=== PATIENT | female | born 1935 | race Caucasian/White ===

== ENCOUNTER 2017-01-02 10:23 | Outpatient (CLI) | payer MEDICARE ==
--- NOTE | 2017-01-02 15:42 | NM ---
WHOLE BODY BONE SCAN: HISTORY: Chest pain on breathing, right breast cancer. RADIOPHARMACEUTICAL: 33 mCi Technetium 99m-MDP injected intravenously. FINDINGS: There is mildly increased uptake in the region of the L1 and L2 vertebral bodies. There is a fractu re of L2 noted on the CT scan of 08/12/16. There is focally increased uptake in the right mandible consistent with periodontal disease. Increa sed uptake in the medial aspect of the left maxillary sinus is likely due to sinus disease. Increased uptake in the shoulder, knees, and ankles is consistent with degenerative changes. No oth er abnormal areas of tracer localization are seen. Tracer excretion through the kidneys within norm al limits. IMPRESSION: 1. Mild increased uptake in the upper lumbar spine. Correlation with plain radiographs is recommen ded. 2. No evidence of abnormal tracer localization in the rib cage. POS: [facility]
== END 2017-01-02 10:24 | disposition home or self-care (01) ==
LOC: NM 10:23
PROVIDERS: ATTEND Surgery
DX: R07.1 Chest pain on breathing (principal)
CPT/HCPCS: 78306; A9503

== ENCOUNTER 2017-01-07 14:23 | Outpatient (CLI) | payer MEDICARE ==
--- NOTE | 2017-01-07 16:53 | RAD ---
THREE VIEWS LUMBAR SPINE: Date: 01-07-17 History: Breast cancer. Comparison: 08-03-16 FINDINGS: Again noted are multilevel degenerative changes in the lumbar spine. There is a mild wedge shaped co mpression fracture of the L2 vertebral body which was seen on the CT lumbar spine on 08-12-16. The ma in vertebral body heights are within normal heights. There are degenerative changes seen involving t he upper lumbar spine with osteophytes present. No subluxation is seen. Vascular calcification is se en in the abdominal aorta and iliac arteries as well as in the tortuous splenic artery. IMPRESSION: 1. Overall stable height loss involving the compression fracture of the L2 vertebral body when ivana red to CT exam on 08-12-16. 2. Degenerative changes in the lumbar spine. 3. Vascular calcifications. POS: [facility]
== END 2017-01-07 14:24 | disposition home or self-care (01) ==
LOC: RAD 14:23
PROVIDERS: ATTEND Surgery
DX: C50.919 Malignant neoplasm of unspecified site of unspecified female breast (principal); M48.56XD Collapsed vertebra, not elsewhere classified, lumbar region, subsequent encounter for fracture with routine healing; M47.896 Other spondylosis, lumbar region; I70.90 Unspecified atherosclerosis
CPT/HCPCS: 72100

== ENCOUNTER 2017-04-14 10:22 | Inpatient (IN) | payer MEDICARE ==
[2017-04-14] MEDS ORDERED: Ondansetron HCl/PF 4 MG/2 ML Vial ONE (11:03)
[2017-04-14 11:05] LABS: #Eosinphils 0.1 thou/uL (0.0-0.7); #Lymphocytes 0.7 thou/uL (1.20-3.40); #Monocytes 0.7 thou/uL (0.11-0.59); #Neutrophils 4.6 thou/uL (1.40-6.50); %Basophils 0.2 % (0.0-1.0); %Eosinophils 1.3 % (0.0-10.0); %Lymphocytes 11.8 % (21.0-51.0); %Monocytes 11.9 % (0.0-10.0); %Neutrophils 74.8 % (42.0-75.0); Hemoglobin 12.8 g/dL (12.0-16.0); Mean Corpuscular HGB CONC 32.5 g/dL (32.0-36.0); Mean Corpuscular Hemoglobin 31.7 pg (27.0-31.0); Mean Corpuscular Volume 97.4 fl (81.0-99.0); Mean Platelet Volume 8.8 fL (7.4-10.4); Platelet Count 166 thou/uL (130-400); RBC Distribution Width 13.8 % (11.5-14.5); Red Blood Cell (RBC) Count 4.05 mill/uL (4.20-5.40); White Blood Cell (WBC) Count 6.2 thou/uL (4.8-10.8)
--- NOTE | 2017-04-14 11:15 | RAD ---
PORTABLE CHEST: Date: 04/14/17 HISTORY: Shortness of breath. Dyspnea. COMPARISON: 04/11/17. FINDINGS: Mild cardiomegaly is stable. The lungs appear clear. No evidence of significant vascular congestion. No focal infiltrate seen on this portable projection. IMPRESSION: No acute findings. POS: [facility]
[2017-04-14 11:28] LABS: ALT (SGPT) 26 U/L (8-55); AST (SGOT) 45 U/L (5-34); Albumin 4.2 g/dL (3.4-4.8); Alkaline Phosphatase 54 U/L (40-150); Anion Gap 17 mmol/L (10-20); BUN (Urea Nitrogen) 16 mg/dL (9.8-20.1); Bilirubin, Total 0.5 mg/dL (0.2-1.2); CK (CPK) 77 U/L (29-168); Calc. Creatinine Clearance 0 mL/min (70-130); Calcium 9.9 mg/dL (7.8-10.44); Carbon Dioxide 24 mmol/L (23-31); Chloride 99 mmol/L (98-107); Estimated GFR-MDRD 61; Globulin 2.9 g/dL (2.4-3.5); Glucose 100 mg/dL (83-110); Potassium 4.6 mmol/L (3.5-5.1); Protein, Total 7.1 g/dL (6.0-8.3); Sodium 135 mmol/L (136-145)
[2017-04-14] MEDS ORDERED: Albuterol Sulfate 2.5 mg/3 ml Neb ONE (12:02)
[2017-04-14] MEDS ORDERED: Acetaminophen 500 MG TAB ONE ×2 (13:45)
[2017-04-14] MEDS ORDERED: Senokot 8.6 MG TAB PO PRN (13:55)
[2017-04-14] MEDS ORDERED: Mag-Al 1200 mg/1200 mg/30 ML UDCUP PO PRN (13:55)
[2017-04-14] MEDS ORDERED: Sodium Chloride 0.9% 1,000 ML IV SCH (14:00)
[2017-04-14 14:23] VITALS: BMI 35.1
--- NOTE | 2017-04-14 14:29 | HP ---
REASON FOR ADMISSION: Chronic obstructive pulmonary disease exacerbation. HISTORY OF PRESENT ILLNESS: The patient gives history of being sick from last . She went to see her primary care physician last Friday, Dr. Del Valle. She got herself tested for flu, which was ne gative. Chest x-ray was done then and was negative for any pneumonia. She was given antibiotics for 5 days. From this morning, patient's cough with expectoration turned yellow and had a fever of 100. All of this prompted her to come to the emergency room to check it out. She is normally on 2 liter s nasal cannula oxygen at home. She sees Dr. Trujillo for Pulmonology in the outpatient setting. PAST MEDICAL/SURGICAL HISTORY: Hypertension, chronic atrial fibrillation, coronary artery disease, c hronic respiratory failure on home oxygen at 3 liters by nasal cannula, diastolic heart failure, hist ory of bladder cancer, history of Crohn's disease, dyslipidemia, diabetes mellitus type 2 which is di et controlled, breast cancer status post surgery and mastectomy, appendectomy, hysterectomy, right ma stectomy. CURRENT MEDICATIONS: Pravastatin 10 mg p.o. at bedtime, Diovan 320 mg p.o. q.a.m., Coreg 6.25 mg p.o . twice daily, aspirin 81 mg p.o. daily, multivitamin 1 tablet daily, Dulera inhaler, citalopram 10 m g p.o. daily, Eliquis 5 mg p.o. twice daily, Bentyl p.r.n., lisinopril 20 mg p.o. twice daily. ALLERGIES: Allergic to PROMETHAZINE. PERSONAL HISTORY: Does not abuse alcohol or drugs. Quit smoking 35 years ago. She normally ambulat es by herself and rarely uses a walker. FAMILY HISTORY: Both parents at the age of 84 years. Father instantly with a motor vehicl e accident and mom lived 3 years beyond that and due to complications from the same. REVIEW OF SYSTEMS: The following complete review of systems was negative, unless otherwise mentioned in the HPI or below: Constitutional: Weight loss or gain, ability to conduct usual activities. Skin: Rash, itching. Eyes: Double vision, pain. ENT/Mouth: Nose bleeding, neck stiffness, pain, tenderness. Cardiovascular: Palpitations, dyspnea on exertion, orthopnea. Respiratory: Shortness of breath, wheezing, cough, hemoptysis, fever or night sweats. Gastrointestinal: Poor appetite, abdominal pain, heartburn, nausea, vomiting, constipation, or diarr hea. Genitourinary: Urgency, frequency, dysuria, nocturia. Musculoskeletal: Pain, swelling. Neurologic/Psychiatric: Anxiety, depression. Allergy/Immunologic: Skin rash, bleeding tendency. PHYSICAL EXAMINATION: GENERAL: The patient is an 82-year-old female who is currently not in any acute distress. VITAL SIGNS: Blood pressure 146/66, pulse 70 per minute, respiratory rate 18 per minute, temperature 99.3 degrees Fahrenheit, saturating 96% on 3 liters nasal cannula. NECK: Supple, no elevated JVD. HEENT: Eyes: Extraocular muscles intact. Pupils reacting to light. Oral cavity mucous membranes a re dry. No exudates or congestion. CARDIOVASCULAR: S1, S2 heard. Regular rhythm. RESPIRATORY: Air entry 1+ bilateral. Scattered wheezes plus bilateral. ABDOMEN: Soft, bowel sounds heard. No tenderness, rigidity or guarding. EXTREMITIES: No peripheral edema or calf tenderness. VASCULAR SYSTEM: Peripheral pulses 1+ bilateral. No ischemic ulcerations or gangrene. CENTRAL NERVOUS SYSTEM: No gross focal deficits seen. Patient is alert, awake, oriented well. PSYCHIATRIC: The patient's mood is euthymic. No hallucinations or delusions. LABORATORY DATA AND X-RAY FINDINGS: EKG done shows atrial fibrillation at 71 beats per minute. Elec trolytes are stable. BUN 16, creatinine 0.8, glucose 100, AST 45, albumin is 4.2. First set of card iac enzymes are negative. Chest x-ray done shows no acute cardiopulmonary abnormalities. White coun t of 6, H&H is 12 and 39, platelet count 166 with 74% neutrophils. CLINICAL IMPRESSION AND PLAN: The patient will be admitted to medical floor for acute chronic obstru ction pulmonary exacerbation with history of chronic respiratory failure on home oxygen. The patient likely had a viral infection a week back, which has caused her current chronic obstructive pulmonary disease exacerbation. She will be on Solu-Medrol 40 mg IV q.6 hourly, gentle hydration with normal saline at 40 mL per hour and empiric Levaquin 500 mg IV daily. We will continue her aspirin, Coreg, Lexapro, Eliquis, and Pravachol as before. We will also consult her revenue enforcement agent, Dr. Trujillo, who kno ws her well from before. Code status was discussed and she is a full code for now.
[2017-04-14] MEDS: Acetaminophen 325 MG TAB PO PRN (20:22)
[2017-04-14] MEDS: Famotidine 20 MG TAB PO SCH (21:35)
[2017-04-14] MEDS: Carvedilol 6.25 MG TAB PO SCH (21:35)
[2017-04-14] MEDS: Apixaban 5 MG TAB PO SCH (21:36)
[2017-04-14] MEDS: Pravastatin Sodium 20 MG TAB PO SCH (21:36)
[2017-04-15] MEDS ORDERED: Albuterol Sulfate 2.5 mg/3 ml Neb NEB PRN (05:27)
[2017-04-15] MEDS ORDERED: Sodium Chloride 0.9% 10 ML ONE ×2 (05:32→11:16)
[2017-04-15 06:14] LABS: Anion Gap 18 mmol/L (10-20); BUN (Urea Nitrogen) 20 mg/dL (9.8-20.1); Calc. Creatinine Clearance 57 mL/min (70-130); Calcium 9.4 mg/dL (7.8-10.44); Carbon Dioxide 21 mmol/L (23-31); Chloride 100 mmol/L (98-107); Estimated GFR-MDRD 50; Glucose 166 mg/dL (83-110); Potassium 6.1 mmol/L (3.5-5.1); Sodium 133 mmol/L (136-145)
[2017-04-15 06:24] LABS: Band 15 % (5-11); Hemoglobin 11.7 g/dL (12.0-16.0); Lymphocytes 8 % (21-51); MDiff Complete? YES; Mean Corpuscular HGB CONC 30.3 g/dL (32.0-36.0); Mean Corpuscular Hemoglobin 29.6 pg (27.0-31.0); Mean Corpuscular Volume 97.6 fl (81.0-99.0); Mean Platelet Volume 8.4 fL (7.4-10.4); Monocytes 3 % (0-10); Neutrophil 74 % (42-75); Platelet Count 138 thou/uL (130-400); RBC Distribution Width 13.4 % (11.5-14.5); Red Blood Cell (RBC) Count 3.95 mill/uL (4.20-5.40); White Blood Cell (WBC) Count 8.6 thou/uL (4.8-10.8)
[2017-04-15] MEDS: Escitalopram Oxalate 10 mg Tablet PO SCH (08:37)
[2017-04-15] MEDS: Carvedilol 6.25 MG TAB PO SCH ×2 (08:37→22:29)
[2017-04-15] MEDS: Apixaban 5 MG TAB PO SCH ×2 (08:38→22:29)
[2017-04-15] MEDS: Famotidine 20 MG TAB PO SCH ×2 (08:38→22:29)
[2017-04-15] MEDS: Fish Oil 1,000 MG CAP PO SCH (08:39)
[2017-04-15] MEDS: Acetaminophen 325 MG TAB PO PRN (08:39)
[2017-04-15 09:41] LABS: Anion Gap 19 mmol/L (10-20); BUN (Urea Nitrogen) 22 mg/dL (9.8-20.1); Calc. Creatinine Clearance 57 mL/min (70-130); Calcium 9.4 mg/dL (7.8-10.44); Carbon Dioxide 20 mmol/L (23-31); Chloride 102 mmol/L (98-107); Estimated GFR-MDRD 50; Glucose 197 mg/dL (83-110); Potassium 6.9 mmol/L (3.5-5.1); Sodium 134 mmol/L (136-145)
[2017-04-15 10:48] LABS: Potassium 4.7 mmol/L (3.5-5.1)
--- NOTE | 2017-04-15 11:18 | CON ---
DATE OF CONSULTATION: 04/15/2017 This is an 82-year-old morbidly obese female who is well-known to me. She presented here with shortn ess of breath, weakness, cough and fever. Apparently sats were low in the 70s. She was placed on lo w flow O2. On most days she can barely walk 50 feet without getting markedly short of breath. She saw her [facility]. X-ray was ordered which apparently was clear. She now states her sputum has changed from clear to now discolored sputum. PAST MEDICAL HISTORY: Pertinent for chronic obstructive pulmonary disease, severe deconditioning, ob esity, respiratory failure, congestive heart failure, cardiac arrhythmias, hypertension, Crohn's dise ase, breast cancer. PAST SURGICAL HISTORY: Mastectomy, right. Appendix. Hysterectomy. Bladder cancer. TOBACCO: emt intermediate previous smoker. MEDICATIONS FROM HOME: 1. Metformin 500. 2. Azulfidine 500 twice a day. 3. Hydralazine 50. 4. Pravastatin. 5. Dulera. 6. Lisinopril 20. 7. Synthroid 50. 8. DuoNeb. Breo 1. 9. Lexapro 10. 10. Digoxin 0.25. 11. Bentyl 10. 12. Coreg 6.25. 13. Eliquis 5 twice a day. Also on admission she was started on steroids, antibiotics, DuoNeb. REVIEW OF SYSTEMS: Otherwise 10 point negative. PHYSICAL EXAMINATION: GENERAL: She appears to be in mild distress. VITAL SIGNS: Blood pressure 150/70, sats 84-87, 90 on 4 liters, temperature is 98. CHEST: Noted extensive wheezing and rhonchi. CARDIAC: Normal S1, S2. No gallops. Supraventricular tachycardia. ABDOMEN: Soft. NEURO: She is awake, alert, responsive. LABORATORY: White count 8000, H&H 9 and 38, platelet count is 38. Electrolytes are normal. Glucose 146. Chest x-ray report shows once again cardiomegaly, but no acute infiltrates. IMPRESSION: 1. Chronic obstructive pulmonary disease exacerbation. 2. Bronchitis. 3. Supraventricular tachycardia. 3. Severe deconditioning. PLAN: Continue neb treatments, empiric antibiotics, supportive care. I will follow.
--- NOTE | 2017-04-15 13:36 | PDOC.PN ---
- Subjective Encounter Start Date: 04/15/17 Encounter Start Time: 11:00 Subjective: sob+, no chest pain or palpitations - Objective Resuscitation Status: Resuscitation Status DNR:Do Not Resuscitate MAR Reviewed: Yes Vital Signs & Weight: Vital Signs (12 hours) Temp Pulse Resp BP BP Pulse Ox 04/15/17 11:57 98.5 F 82 28 H 86 L 04/15/17 08:37 150/70 H 04/15/17 08:04 87 L 04/15/17 08:00 98.5 F 82 28 H 150/67 H 88 L 04/15/17 07:58 68 20 87 L 04/15/17 06:01 72 22 H 89 L 04/15/17 05:27 95 04/15/17 04:40 98.4 F 84 26 H 156/65 H 94 L Weight Admit Weight 198 lb 6.656 oz Weight 198 lb 6.656 oz I&O: 04/14/17 04/15/17 04/16/17 06:59 06:59 06:59 Intake Total 2319 Output Total 800 Balance 1519 Result Diagrams: 04/15/17 05:19 04/15/17 10:24 Additional Labs: Accuchecks 04/15/17 04/14/17 04/14/17 04:43 22:25 18:06 POC Glucose 146 H 109 90 04/14/17 16:00 POC Glucose 56 L* Phys Exam - Physical Examination HEENT: PERRLA, moist MMs Neck: no JVD, supple Respiratory: no wheezing, no rales rhonchi++ Cardiovascular: RRR, no significant murmur Gastrointestinal: soft, non-tender, positive bowel sounds Musculoskeletal: no edema, pulses present Neurological: non-focal, moves all 4 limbs Psychiatric: A&O x 3 Dx/Plan (1) COPD exacerbation Code(s): J44.1 - CHRONIC OBSTRUCTIVE PULMONARY DISEASE W (ACUTE) EXACERBATION Status: Acute (2) Respiratory failure with hypoxia Code(s): J96.91 - RESPIRATORY FAILURE, UNSPECIFIED WITH HYPOXIA Status: Chronic Qualifiers: Chronicity: acute on chronic Qualified Code(s): J96.21 - Acute and chronic respiratory failure with hypoxia (3) Atrial fibrillation Code(s): I48.91 - UNSPECIFIED ATRIAL FIBRILLATION Status: Chronic Qualifiers: Atrial fibrillation type: chronic Qualified Code(s): I48.2 - Chronic atrial fibrillation (4) CAD (coronary artery disease) Code(s): I25.10 - ATHSCL HEART DISEASE OF [place] CORONARY ARTERY W/O ANG PCTRS Status: Chronic Qualifiers: Coronary Disease-Associated Artery/Lesion type: [place] artery [place] vs. transplanted heart: [place] heart Associated angina: without angina Qualified Code(s): I25.10 - Atherosclerotic heart disease of [place] coronary artery without angina pectoris (5) DM type 2 (diabetes mellitus, type 2) Status: Chronic Qualifiers: Diabetes mellitus complication status: with unspecified complications Diabetes mellitus fci insulin use: without termite helper use Qualified Code( s): E11.8 - Type 2 diabetes mellitus with unspecified complications (6) Diastolic heart failure Code(s): I50.30 - UNSPECIFIED DIASTOLIC (CONGESTIVE) HEART FAILURE Status: Chronic Qualifiers: Heart failure chronicity: chronic (7) HTN (hypertension) Code(s): I10 - ESSENTIAL (PRIMARY) HYPERTENSION Status: Chronic Qualifiers: Hypertension type: essential hypertension - Plan on nebs, steroids, empiric levaquin -: asp, coreg and eliquis -: PT to mobilize as tolerated, oob to chair -: i.spirometer, discussed code status: wants to be DNR -: is chronically on 2 liters NC at home * . Review of Systems - Medications/Allergies Allergies/Adverse Reactions: Allergies Allergy/AdvReac Type Severity Reaction Status Date / Time promethazine HCl Allergy Unknown Anxiety Verified 08/27/16 21:26 [From Phenergan] Medications: Current Medications Acetaminophen (Tylenol) 650 mg PO Q4H PRN PRN Reason: Headache/Fever or Pain Last Admin: 04/15/17 08:39 Dose: 650 mg Al Hydroxide/Mg Hydroxide (Maalox) 30 ml PO Q6H PRN PRN Reason: Heartburn or Indigestion Albuterol Sulfate (Ventolin) 2.5 mg NEB Q2H PRN PRN Reason: Dyspnea/Wheezing/SOB Last Admin: 04/15/17 07:58 Dose: 2.5 mg Albuterol/Ipratropium (Duoneb) 3 ml NEB [id number] [facility] Last Admin: 04/15/17 06:01 Dose: 3 ml Apixaban (Eliquis) 5 mg PO BID [facility] Last Admin: 04/15/17 08:38 Dose: 5 mg Aspirin (Aspirin Chewable) 81 mg PO DAILY [facility] Last Admin: 04/15/17 08:36 Dose: 81 mg Carvedilol (Coreg) 6.25 mg PO BID [facility] Last Admin: 04/15/17 08:37 Dose: 6.25 mg Escitalopram Oxalate (Lexapro) 10 mg PO DAILY [facility] Last Admin: 04/15/17 08:37 Dose: 10 mg Famotidine (Pepcid) 20 mg PO BID [facility] Last Admin: 04/15/17 08:38 Dose: 20 mg Fish Oil (Fish Oil) 1,000 mg PO DAILY [facility] Last Admin: 04/15/17 08:39 Dose: 1,000 mg Guaifenesin/Dextromethorphan (Robitussin Dm) 15 ml PO Q4H PRN PRN Reason: Cough Levofloxacin 500 mg/ Device 100 mls @ 100 mls/hr IVPB 1100 [facility] Last Admin: 04/15/17 11:30 Dose: 100 mls Methylprednisolone Sodium Succinate (Solu-Medrol) 40 mg IVP Q6HR [facility] Last Admin: 04/15/17 11:30 Dose: 40 mg Mometasone Furoate/Formoterol Fumar (Dulera 200 Mcg/5 Mcg Inhaler) 2 puff INH BID-RT [facility] Pravastatin Sodium (Pravachol) 10 mg PO HS [facility] Last Admin: 04/14/17 21:36 Dose: 10 mg Senna (Senokot) 2 tab PO HSPRN PRN PRN Reason: Constipation
[2017-04-15] MEDS ORDERED: Ondansetron HCl/PF 4 MG/2 ML Vial SLOW IVP PRN (17:02)
[2017-04-15] MEDS ORDERED: Dextrose 5% in Water 1,000 ML IV PRN (17:03)
[2017-04-15] MEDS ORDERED: Dextrose 50% Abboject 50 ML SYRINGE IVP PRN (17:03)
[2017-04-15] MEDS: HumaLOG 300 UNITS/3 ML VIAL SC PRN (17:21)
[2017-04-15] MEDS: Mometasone/Formoterol 120 PUFF INHALER INH SCH (19:05)
[2017-04-15] MEDS: Pravastatin Sodium 20 MG TAB PO SCH (22:28)
[2017-04-16] MEDS: Mometasone/Formoterol 120 PUFF INHALER INH SCH ×2 (06:46→18:16)
[2017-04-16] MEDS: Apixaban 5 MG TAB PO SCH ×2 (08:18→21:03)
[2017-04-16] MEDS: Escitalopram Oxalate 10 mg Tablet PO SCH (08:18)
[2017-04-16] MEDS: Famotidine 20 MG TAB PO SCH ×2 (08:18→21:03)
[2017-04-16] MEDS: Fish Oil 1,000 MG CAP PO SCH (08:19)
[2017-04-16] MEDS: Carvedilol 6.25 MG TAB PO SCH ×2 (08:19→21:03)
[2017-04-16] MEDS: metFORMIN 500 MG TAB PO SCH ×2 (08:33→14:47)
--- NOTE | 2017-04-16 11:38 | PDOC.PN ---
- Subjective Encounter Start Date: 04/16/17 Encounter Start Time: 10:00 Subjective: no sob, feels better - Objective Resuscitation Status: Resuscitation Status DNR:Do Not Resuscitate MAR Reviewed: Yes Vital Signs & Weight: Vital Signs (12 hours) Temp Pulse Resp BP Pulse Ox 04/16/17 07:52 97.8 F 69 16 173/84 H 93 L 04/16/17 07:10 98 F 64 16 04/16/17 06:48 64 16 94 L 04/16/17 06:46 64 16 94 L 04/16/17 04:40 98.0 F 67 18 154/83 H 95 04/16/17 00:00 98.8 F 62 20 156/78 H 91 L Weight Admit Weight 198 lb 6.656 oz Weight 198 lb 6.656 oz I&O: 04/15/17 04/16/17 04/17/17 06:59 06:59 06:59 Intake Total 2319 Output Total 800 Balance 1519 Result Diagrams: 04/15/17 05:19 04/15/17 10:24 Additional Labs: Accuchecks 04/16/17 04/15/17 04/15/17 04:31 20:24 19:06 POC Glucose 258 H 262 H 273 H 04/15/17 16:48 POC Glucose 337 H Phys Exam - Physical Examination HEENT: PERRLA, moist MMs Neck: no JVD, supple Respiratory: no wheezing, no rales rhonchi+ Cardiovascular: RRR, no significant murmur Gastrointestinal: soft, non-tender, positive bowel sounds Musculoskeletal: no edema, pulses present Neurological: non-focal, moves all 4 limbs Psychiatric: A&O x 3 Dx/Plan (1) COPD exacerbation Code(s): J44.1 - CHRONIC OBSTRUCTIVE PULMONARY DISEASE W (ACUTE) EXACERBATION Status: Acute (2) Respiratory failure with hypoxia Code(s): J96.91 - RESPIRATORY FAILURE, UNSPECIFIED WITH HYPOXIA Status: Chronic Qualifiers: Chronicity: chronic Qualified Code(s): J96.11 - Chronic respiratory failure with hypoxia (3) Atrial fibrillation Code(s): I48.91 - UNSPECIFIED ATRIAL FIBRILLATION Status: Chronic Qualifiers: Atrial fibrillation type: chronic Qualified Code(s): I48.2 - Chronic atrial fibrillation (4) CAD (coronary artery disease) Code(s): I25.10 - ATHSCL HEART DISEASE OF [place] CORONARY ARTERY W/O ANG PCTRS Status: Chronic Qualifiers: Coronary Disease-Associated Artery/Lesion type: [place] artery [place] vs. transplanted heart: [place] heart Associated angina: without angina Qualified Code(s): I25.10 - Atherosclerotic heart disease of [place] coronary artery without angina pectoris (5) DM type 2 (diabetes mellitus, type 2) Status: Chronic Qualifiers: Diabetes mellitus complication status: with unspecified complications Diabetes mellitus extermination inspector insulin use: without extermination inspector use Qualified Code( s): E11.8 - Type 2 diabetes mellitus with unspecified complications (6) Diastolic heart failure Code(s): I50.30 - UNSPECIFIED DIASTOLIC (CONGESTIVE) HEART FAILURE Status: Chronic Qualifiers: Heart failure chronicity: chronic (7) HTN (hypertension) Code(s): I10 - ESSENTIAL (PRIMARY) HYPERTENSION Status: Chronic Qualifiers: Hypertension type: essential hypertension - Plan is on solumedrol q8h -: empiric levaquin and nebs -: to ambulate more as tolerated -: add home dose of metformin -: dm is uncontrolled due to steroids which is getting tapered * . Review of Systems - Medications/Allergies Allergies/Adverse Reactions: Allergies Allergy/AdvReac Type Severity Reaction Status Date / Time promethazine HCl Allergy Unknown Anxiety Verified 08/27/16 21:26 [From Phenergan] Medications: Current Medications Acetaminophen (Tylenol) 650 mg PO Q4H PRN PRN Reason: Headache/Fever or Pain Last Admin: 04/15/17 08:39 Dose: 650 mg Al Hydroxide/Mg Hydroxide (Maalox) 30 ml PO Q6H PRN PRN Reason: Heartburn or Indigestion Albuterol Sulfate (Ventolin) 2.5 mg NEB Q2H PRN PRN Reason: Dyspnea/Wheezing/SOB Last Admin: 04/15/17 07:58 Dose: 2.5 mg Albuterol/Ipratropium (Duoneb) 3 ml NEB [id number] [facility] Last Admin: 04/16/17 06:48 Dose: 3 ml Apixaban (Eliquis) 5 mg PO BID [facility] Last Admin: 04/16/17 08:18 Dose: 5 mg Aspirin (Aspirin Chewable) 81 mg PO DAILY [facility] Last Admin: 04/16/17 08:18 Dose: 81 mg Carvedilol (Coreg) 6.25 mg PO BID [facility] Last Admin: 04/16/17 08:19 Dose: 6.25 mg Dextrose/Water (Dextrose 50%) 25 gm IVP PRN PRN PRN Reason: HYPOGLYCEMIA PROTOCOL Escitalopram Oxalate (Lexapro) 10 mg PO DAILY [facility] Last Admin: 04/16/17 08:18 Dose: 10 mg Famotidine (Pepcid) 20 mg PO BID [facility] Last Admin: 04/16/17 08:18 Dose: 20 mg Fish Oil (Fish Oil) 1,000 mg PO DAILY [facility] Last Admin: 04/16/17 08:19 Dose: 1,000 mg Glucagon (Glucagon) 1 mg IM PRN PRN PRN Reason: HYPOGLYCEMIA PROTOCOL Guaifenesin/Dextromethorphan (Robitussin Dm) 15 ml PO Q4H PRN PRN Reason: Cough Levofloxacin 500 mg/ Device 100 mls @ 100 mls/hr IVPB 1100 [facility] Last Admin: 04/16/17 08:19 Dose: 100 mls Dextrose/Water (D5w) 1,000 mls @ 0 mls/hr IV INF PRN; As Directed PRN Reason: HYPOGLYCEMIA PROTOCOL Insulin Human Lispro (Humalog) 0 units SC .MODERATE SLIDING SC PRN; Protocol PRN Reason: MODERATE SLIDING SCALE Last Admin: 04/15/17 17:21 Dose: 5 unit Metformin HCl (Glucophage) 500 mg PO BID-[facility] Last Admin: 04/16/17 08:33 Dose: 500 mg Methylprednisolone Sodium Succinate (Solu-Medrol) 20 mg IVP Q8HR [facility] Mometasone Furoate/Formoterol Fumar (Dulera 200 Mcg/5 Mcg Inhaler) 2 puff INH BID-RT [facility] Last Admin: 04/16/17 06:46 Dose: 2 puff Ondansetron HCl (Zofran) 4 mg SLOW IVP Q6H PRN PRN Reason: Nausea/Vomiting Last Admin: 04/15/17 17:19 Dose: 4 mg Pravastatin Sodium (Pravachol) 10 mg PO HS [facility] Last Admin: 04/15/17 22:28 Dose: 10 mg Senna (Senokot) 2 tab PO HSPRN PRN PRN Reason: Constipation
[2017-04-16] MEDS: HumaLOG 300 UNITS/3 ML VIAL SC PRN ×3 (12:37→21:04)
[2017-04-16] MEDS: Acetaminophen 325 MG TAB PO PRN ×2 (12:40→18:05)
--- NOTE | 2017-04-16 13:40 | PRG ---
DATE OF SERVICE: 04/16/2017 SUBJECTIVE: She is feeling better this morning. She is still weak. She is coughing up some stuff t hat is grossly purulent. No chest pain, chills or sweats. She is scheduled neb treatments, steroids as well as Dulera. She has noninvasive ventilation at night time: OBJECTIVE: VITAL SIGNS: Sats are 93 on 4 liters, temperature 97, blood pressure 173/84. CHEST: Extensive rhonchi. CARDIAC: Sinus tachycardia. ABDOMEN: Soft. No masses. LABORATORY: Blood cultures are growing coagulase negative Staph, which is a contamination. IMPRESSION: 1. Chronic obstructive pulmonary disease exacerbation, bronchitis. 2. Severe deconditioning. 3. Morbid obesity. 4. Sleep apnea. Noninvasive ventilation at nighttime initiated. Continue neb treatments, supportive care, antibiotic s. We will follow.
[2017-04-16] MEDS: Guaifenesin DM 100-10/5 ML UDCUP PO PRN (18:01)
[2017-04-16] MEDS: Pravastatin Sodium 20 MG TAB PO SCH (21:03)
[2017-04-17] MEDS: HumaLOG 300 UNITS/3 ML VIAL SC PRN ×3 (05:19→17:55)
[2017-04-17] MEDS: Acetaminophen 325 MG TAB PO PRN (05:35)
[2017-04-17] MEDS: Mometasone/Formoterol 120 PUFF INHALER INH SCH ×2 (06:57→19:30)
[2017-04-17] MEDS: metFORMIN 500 MG TAB PO SCH ×2 (09:23→17:55)
[2017-04-17] MEDS: Fish Oil 1,000 MG CAP PO SCH (09:23)
[2017-04-17] MEDS: Carvedilol 6.25 MG TAB PO SCH ×2 (09:23→20:41)
[2017-04-17] MEDS: Apixaban 5 MG TAB PO SCH ×2 (09:23→20:41)
[2017-04-17] MEDS: Escitalopram Oxalate 10 mg Tablet PO SCH (09:23)
[2017-04-17] MEDS: Famotidine 20 MG TAB PO SCH ×2 (09:24→20:42)
--- NOTE | 2017-04-17 09:46 | PRG ---
DATE OF SERVICE: 04/17/2017 This morning she is doing poorly. She is short of breath. PHYSICAL EXAMINATION: VITAL SIGNS: Sats are 93 on 4 liters, blood pressure 150/80, temperature is 97. CHEST: Chest revealed decreased breath sounds, no wheezing. CARDIAC: Normal S1, S2. ABDOMEN: Soft, no masses. IMPRESSION: 1. Severe chronic obstructive pulmonary disease. 2. Hypoxemia. 3. Severe deconditioning. 4. Congestive heart failure. PLAN: Continue neb treatments, steroids, supportive care. I will follow. Nocturnal ventilation.
--- NOTE | 2017-04-17 11:46 | PDOC.PN ---
- Subjective Encounter Start Date: 04/17/17 Encounter Start Time: 10:00 Subjective: sob+, has not amb so far -: no palp or chest pain -: overall is getting better - Objective Resuscitation Status: Resuscitation Status DNR:Do Not Resuscitate MAR Reviewed: Yes Vital Signs & Weight: Vital Signs (12 hours) Temp Pulse Resp BP BP Pulse Ox 04/17/17 09:23 151/81 H 04/17/17 08:00 97.6 F 67 20 151/81 H 04/17/17 07:00 64 16 93 L 04/17/17 06:57 64 16 93 L Weight Admit Weight 198 lb 6.656 oz Weight 198 lb 6.656 oz I&O: 04/16/17 04/17/17 04/18/17 06:59 06:59 06:59 Intake Total 480 Balance 480 Result Diagrams: 04/15/17 05:19 04/15/17 10:24 Additional Labs: Accuchecks 04/17/17 04/16/17 04/16/17 04:46 20:14 16:27 POC Glucose 203 H 235 H 202 H 04/16/17 11:47 POC Glucose 282 H Phys Exam - Physical Examination HEENT: PERRLA, moist MMs Neck: no JVD, supple Respiratory: no rales, wheezing present Cardiovascular: RRR, no significant murmur Gastrointestinal: soft, non-tender, positive bowel sounds Musculoskeletal: no edema, pulses present Neurological: non-focal, moves all 4 limbs Psychiatric: A&O x 3 Dx/Plan (1) COPD exacerbation Code(s): J44.1 - CHRONIC OBSTRUCTIVE PULMONARY DISEASE W (ACUTE) EXACERBATION Status: Acute (2) Respiratory failure with hypoxia Code(s): J96.91 - RESPIRATORY FAILURE, UNSPECIFIED WITH HYPOXIA Status: Chronic Qualifiers: Chronicity: chronic Qualified Code(s): J96.11 - Chronic respiratory failure with hypoxia (3) Atrial fibrillation Code(s): I48.91 - UNSPECIFIED ATRIAL FIBRILLATION Status: Chronic Qualifiers: Atrial fibrillation type: chronic Qualified Code(s): I48.2 - Chronic atrial fibrillation (4) CAD (coronary artery disease) Code(s): I25.10 - ATHSCL HEART DISEASE OF [place] CORONARY ARTERY W/O ANG PCTRS Status: Chronic Qualifiers: Coronary Disease-Associated Artery/Lesion type: [place] artery [place] vs. transplanted heart: [place] heart Associated angina: without angina Qualified Code(s): I25.10 - Atherosclerotic heart disease of [place] coronary artery without angina pectoris (5) DM type 2 (diabetes mellitus, type 2) Status: Chronic Qualifiers: Diabetes mellitus complication status: with unspecified complications Diabetes mellitus long-term insulin use: without long-term use Qualified Code( s): E11.8 - Type 2 diabetes mellitus with unspecified complications (6) Diastolic heart failure Code(s): I50.30 - UNSPECIFIED DIASTOLIC (CONGESTIVE) HEART FAILURE Status: Chronic Qualifiers: Heart failure chronicity: chronic (7) HTN (hypertension) Code(s): I10 - ESSENTIAL (PRIMARY) HYPERTENSION Status: Chronic Qualifiers: Hypertension type: essential hypertension (8) Physical deconditioning Code(s): R53.81 - OTHER MALAISE Status: Acute - Plan is on levaquin, nebs and steroids -: spo2 93% on 4 liters -: PT to mobilize as tolerated -: might need swing bed if she cant amb -: oob to chair as much as possible, donot elevate her legs * . Review of Systems - Medications/Allergies Allergies/Adverse Reactions: Allergies Allergy/AdvReac Type Severity Reaction Status Date / Time promethazine HCl Allergy Unknown Anxiety Verified 08/27/16 21:26 [From Phenergan] Medications: Current Medications Acetaminophen (Tylenol) 650 mg PO Q4H PRN PRN Reason: Headache/Fever or Pain Last Admin: 04/17/17 05:35 Dose: 650 mg Al Hydroxide/Mg Hydroxide (Maalox) 30 ml PO Q6H PRN PRN Reason: Heartburn or Indigestion Albuterol Sulfate (Ventolin) 2.5 mg NEB Q2H PRN PRN Reason: Dyspnea/Wheezing/SOB Last Admin: 04/15/17 07:58 Dose: 2.5 mg Albuterol/Ipratropium (Duoneb) 3 ml NEB [id number] [facility] Last Admin: 04/17/17 07:00 Dose: 3 ml Apixaban (Eliquis) 5 mg PO BID [facility] Last Admin: 04/17/17 09:23 Dose: 5 mg Aspirin (Aspirin Chewable) 81 mg PO DAILY [facility] Last Admin: 04/17/17 09:24 Dose: 81 mg Carvedilol (Coreg) 6.25 mg PO BID [facility] Last Admin: 04/17/17 09:23 Dose: 6.25 mg Dextrose/Water (Dextrose 50%) 25 gm IVP PRN PRN PRN Reason: HYPOGLYCEMIA PROTOCOL Escitalopram Oxalate (Lexapro) 10 mg PO DAILY [facility] Last Admin: 04/17/17 09:23 Dose: 10 mg Famotidine (Pepcid) 20 mg PO BID [facility] Last Admin: 04/17/17 09:24 Dose: 20 mg Fish Oil (Fish Oil) 1,000 mg PO DAILY [facility] Last Admin: 04/17/17 09:23 Dose: 1,000 mg Glucagon (Glucagon) 1 mg IM PRN PRN PRN Reason: HYPOGLYCEMIA PROTOCOL Guaifenesin/Dextromethorphan (Robitussin Dm) 15 ml PO Q4H PRN PRN Reason: Cough Last Admin: 04/16/17 18:01 Dose: 15 ml Levofloxacin 500 mg/ Device 100 mls @ 100 mls/hr IVPB 1100 [facility] Last Admin: 04/16/17 08:19 Dose: 100 mls Dextrose/Water (D5w) 1,000 mls @ 0 mls/hr IV INF PRN; As Directed PRN Reason: HYPOGLYCEMIA PROTOCOL Insulin Human Lispro (Humalog) 0 units SC .MODERATE SLIDING SC PRN; Protocol PRN Reason: MODERATE SLIDING SCALE Last Admin: 04/17/17 05:19 Dose: 4 unit Metformin HCl (Glucophage) 500 mg PO BID-WM [facility] Last Admin: 04/17/17 09:23 Dose: 500 mg Methylprednisolone Sodium Succinate (Solu-Medrol) 20 mg IVP Q8HR [facility] Last Admin: 04/17/17 05:19 Dose: 20 mg Mometasone Furoate/Formoterol Fumar (Dulera 200 Mcg/5 Mcg Inhaler) 2 puff INH BID-RT [facility] Last Admin: 04/17/17 06:57 Dose: 2 puff Ondansetron HCl (Zofran) 4 mg SLOW IVP Q6H PRN PRN Reason: Nausea/Vomiting Last Admin: 04/15/17 17:19 Dose: 4 mg Pravastatin Sodium (Pravachol) 10 mg PO HS [facility] Last Admin: 04/16/17 21:03 Dose: 10 mg Senna (Senokot) 2 tab PO HSPRN PRN PRN Reason: Constipation
[2017-04-17] MEDS: Pravastatin Sodium 20 MG TAB PO SCH (20:41)
[2017-04-17] MEDS: sulfaSALAzine 500 MG TAB PO SCH (20:42)
[2017-04-17] MEDS: Guaifenesin DM 100-10/5 ML UDCUP PO PRN (22:21)
[2017-04-18] MEDS ORDERED: hydrALAZINE 20 MG/ML VIAL SLOW IVP SCH (05:00)
[2017-04-18 05:45] LABS: Hemoglobin 10.9 g/dL (12.0-16.0); Platelet Count 152 thou/uL (130-400)
[2017-04-18] MEDS: HumaLOG 300 UNITS/3 ML VIAL SC PRN ×2 (05:50→18:06)
[2017-04-18] MEDS: Mometasone/Formoterol 120 PUFF INHALER INH SCH ×2 (06:00→18:57)
[2017-04-18] MEDS ORDERED: predniSONE 20 MG TAB PO SCH (08:00)
[2017-04-18] MEDS: Apixaban 5 MG TAB PO SCH ×2 (08:49→21:45)
[2017-04-18] MEDS: Famotidine 20 MG TAB PO SCH ×2 (08:50→21:46)
[2017-04-18] MEDS: Fish Oil 1,000 MG CAP PO SCH (08:50)
[2017-04-18] MEDS: Carvedilol 6.25 MG TAB PO SCH ×2 (08:50→21:45)
[2017-04-18] MEDS: sulfaSALAzine 500 MG TAB PO SCH ×2 (08:51→21:46)
[2017-04-18] MEDS: Escitalopram Oxalate 10 mg Tablet PO SCH (08:51)
[2017-04-18] MEDS: Acetaminophen 325 MG TAB PO PRN (08:58)
[2017-04-18] MEDS: metFORMIN 500 MG TAB PO SCH ×2 (10:47→17:31)
[2017-04-18] MEDS: hydrALAZINE 25 MG TAB PO SCH ×2 (14:51→21:46)
--- NOTE | 2017-04-18 14:53 | PDOC.PN ---
- Subjective Encounter Start Date: 04/18/17 Encounter Start Time: 11:25 Subjective: breathing better, no sob -: is amb to her bedside commode - Objective Resuscitation Status: Resuscitation Status DNR:Do Not Resuscitate MAR Reviewed: Yes Vital Signs & Weight: Vital Signs (12 hours) Temp Pulse Resp BP BP BP Pulse Ox 04/18/17 12:15 97.5 F L 59 L 16 184/92 H 96 04/18/17 08:50 170/82 H 04/18/17 08:00 97.4 F L 67 18 90 L 04/18/17 07:31 97.4 F L 67 18 170/82 H 90 L 04/18/17 05:45 71 188/104 H 04/18/17 04:00 97.4 F L 71 20 99 Weight Admit Weight 198 lb 6.656 oz Weight 198 lb 6.656 oz I&O: 04/17/17 04/18/17 04/19/17 06:59 06:59 06:59 Intake Total 480 960 Balance 480 960 Result Diagrams: 04/18/17 05:25 04/18/17 05:25 Additional Labs: Accuchecks 04/18/17 04/18/17 04/17/17 12:14 04:34 19:55 POC Glucose 257 H 251 H 236 H 04/17/17 04/17/17 17:22 11:40 POC Glucose 221 H 227 H Phys Exam - Physical Examination HEENT: PERRLA, moist MMs Neck: no JVD, supple Respiratory: no wheezing, no rales rhonchi+ Cardiovascular: RRR, no significant murmur Gastrointestinal: soft, non-tender, positive bowel sounds Musculoskeletal: no edema, pulses present Neurological: non-focal, moves all 4 limbs Psychiatric: A&O x 3 Dx/Plan (1) COPD exacerbation Code(s): J44.1 - CHRONIC OBSTRUCTIVE PULMONARY DISEASE W (ACUTE) EXACERBATION Status: Acute (2) Respiratory failure with hypoxia Code(s): J96.91 - RESPIRATORY FAILURE, UNSPECIFIED WITH HYPOXIA Status: Chronic Qualifiers: Chronicity: chronic Qualified Code(s): J96.11 - Chronic respiratory failure with hypoxia (3) Atrial fibrillation Code(s): I48.91 - UNSPECIFIED ATRIAL FIBRILLATION Status: Chronic Qualifiers: Atrial fibrillation type: chronic Qualified Code(s): I48.2 - Chronic atrial fibrillation (4) CAD (coronary artery disease) Code(s): I25.10 - ATHSCL HEART DISEASE OF [place] CORONARY ARTERY W/O ANG PCTRS Status: Chronic Qualifiers: Coronary Disease-Associated Artery/Lesion type: [place] artery [place] vs. transplanted heart: [place] heart Associated angina: without angina Qualified Code(s): I25.10 - Atherosclerotic heart disease of [place] coronary artery without angina pectoris (5) DM type 2 (diabetes mellitus, type 2) Status: Chronic Qualifiers: Diabetes mellitus complication status: with unspecified complications Diabetes mellitus jail insulin use: without jail use Qualified Code( s): E11.8 - Type 2 diabetes mellitus with unspecified complications (6) Diastolic heart failure Code(s): I50.30 - UNSPECIFIED DIASTOLIC (CONGESTIVE) HEART FAILURE Status: Chronic Qualifiers: Heart failure chronicity: chronic (7) HTN (hypertension) Code(s): I10 - ESSENTIAL (PRIMARY) HYPERTENSION Status: Chronic Qualifiers: Hypertension type: essential hypertension (8) Physical deconditioning Code(s): R53.81 - OTHER MALAISE Status: Acute - Plan to ambulate more with PT as tolerated -: taper and bring her oxygen to 2 liters home dose -: is on levaquin, oral prednisone -: eliquis for afib -: deconditioning, says she prefers to go to her asst living, likely dc in am * . Review of Systems - Medications/Allergies Allergies/Adverse Reactions: Allergies Allergy/AdvReac Type Severity Reaction Status Date / Time promethazine HCl Allergy Unknown Anxiety Verified 08/27/16 21:26 [From Phenergan] Medications: Current Medications Acetaminophen (Tylenol) 650 mg PO Q4H PRN PRN Reason: Headache/Fever or Pain Last Admin: 04/18/17 08:58 Dose: 650 mg Al Hydroxide/Mg Hydroxide (Maalox) 30 ml PO Q6H PRN PRN Reason: Heartburn or Indigestion Albuterol Sulfate (Ventolin) 2.5 mg NEB Q2H PRN PRN Reason: Dyspnea/Wheezing/SOB Last Admin: 04/15/17 07:58 Dose: 2.5 mg Albuterol/Ipratropium (Duoneb) 3 ml NEB [id number] Last Admin: 04/18/17 11:36 Dose: 3 ml Apixaban (Eliquis) 5 mg PO BID [facility] Last Admin: 04/18/17 08:49 Dose: 5 mg Aspirin (Aspirin Chewable) 81 mg PO DAILY [facility] Last Admin: 04/18/17 08:51 Dose: 81 mg Carvedilol (Coreg) 6.25 mg PO BID [facility] Last Admin: 04/18/17 08:50 Dose: 6.25 mg Dextrose/Water (Dextrose 50%) 25 gm IVP PRN PRN PRN Reason: HYPOGLYCEMIA PROTOCOL Escitalopram Oxalate (Lexapro) 10 mg PO DAILY [facility] Last Admin: 04/18/17 08:51 Dose: 10 mg Famotidine (Pepcid) 20 mg PO BID [facility] Last Admin: 04/18/17 08:50 Dose: 20 mg Fish Oil (Fish Oil) 1,000 mg PO DAILY [facility] Last Admin: 04/18/17 08:50 Dose: 1,000 mg Glucagon (Glucagon) 1 mg IM PRN PRN PRN Reason: HYPOGLYCEMIA PROTOCOL Guaifenesin/Dextromethorphan (Robitussin Dm) 15 ml PO Q4H PRN PRN Reason: Cough Last Admin: 04/17/17 22:21 Dose: 15 ml Hydralazine HCl (Apresoline) 25 mg PO TID [facility] Levofloxacin 500 mg/ Device 100 mls @ 100 mls/hr IVPB 1100 [facility] Last Admin: 04/18/17 10:48 Dose: 100 mls Dextrose/Water (D5w) 1,000 mls @ 0 mls/hr IV INF PRN; As Directed PRN Reason: HYPOGLYCEMIA PROTOCOL Insulin Human Lispro (Humalog) 0 units SC .MODERATE SLIDING SC PRN; Protocol PRN Reason: MODERATE SLIDING SCALE Last Admin: 04/18/17 05:50 Dose: 6 unit Levothyroxine Sodium (Synthroid) 50 mcg PO 0600 [facility] Lisinopril (Zestril) 20 mg PO BID [facility] Metformin HCl (Glucophage) 500 mg PO BID[facility] Last Admin: 04/18/17 10:47 Dose: 500 mg Mometasone Furoate/Formoterol Fumar (Dulera 200 Mcg/5 Mcg Inhaler) 2 puff INH BID-RT [facility] Last Admin: 04/18/17 06:00 Dose: 2 puff Ondansetron HCl (Zofran) 4 mg SLOW IVP Q6H PRN PRN Reason: Nausea/Vomiting Last Admin: 04/15/17 17:19 Dose: 4 mg Pravastatin Sodium (Pravachol) 10 mg PO HS [facility] Last Admin: 04/17/17 20:41 Dose: 10 mg Prednisone (Prednisone) 20 mg PO QAM-WM [facility] Senna (Senokot) 2 tab PO HSPRN PRN PRN Reason: Constipation Sodium Chloride (Flush - Normal Saline) 10 ml IVF Q12HR [facility] Last Admin: 04/18/17 08:52 Dose: 10 ml Sodium Chloride (Flush - Normal Saline) 10 ml IVF PRN PRN PRN Reason: Saline Flush Sulfasalazine (Azulfidine) 500 mg PO BID [facility] Last Admin: 04/18/17 08:51 Dose: 500 mg
--- NOTE | 2017-04-18 15:43 | PRG ---
DATE OF SERVICE: 04/18/2017 SUBJECTIVE: Seen today, she is still short of breath, had a BiPAP last night. OBJECTIVE: VITAL SIGNS: Blood pressure 170/80, pulse 67, sats are 90% on 3 liters, temperature 97. CHEST: Chest reveals decreased breath sounds, prolonged expiration. CARDIAC: Normal S1, S2. No gallops. ABDOMEN: Soft, no masses. IMPRESSION: 1. Chronic obstructive pulmonary disease exacerbation, bronchitis. 2. Respiratory failure. 3. Severe deconditioning. PLAN: Suggest switching over to oral antibiotics. We will try neb treatments with .
[2017-04-18] MEDS: Pravastatin Sodium 20 MG TAB PO SCH (21:43)
[2017-04-18] MEDS: Lisinopril 20 MG TAB PO SCH (21:47)
[2017-04-18] MEDS: Guaifenesin DM 100-10/5 ML UDCUP PO PRN (21:54)
[2017-04-19] MEDS: Mometasone/Formoterol 120 PUFF INHALER INH SCH ×2 (06:41→19:45)
[2017-04-19] MEDS: Levothyroxine Sodium 25 MCG TAB PO SCH (07:24)
[2017-04-19] MEDS: Famotidine 20 MG TAB PO SCH ×2 (09:05→20:57)
[2017-04-19] MEDS: Lisinopril 20 MG TAB PO SCH ×2 (09:05→20:56)
[2017-04-19] MEDS: Fish Oil 1,000 MG CAP PO SCH (09:05)
[2017-04-19] MEDS: Apixaban 5 MG TAB PO SCH ×2 (09:05→20:55)
[2017-04-19] MEDS: metFORMIN 500 MG TAB PO SCH ×2 (09:05→17:31)
[2017-04-19] MEDS: Escitalopram Oxalate 10 mg Tablet PO SCH (09:05)
[2017-04-19] MEDS: Carvedilol 6.25 MG TAB PO SCH ×2 (09:05→20:55)
[2017-04-19] MEDS: predniSONE 20 MG TAB PO SCH (09:06)
[2017-04-19] MEDS: sulfaSALAzine 500 MG TAB PO SCH ×2 (09:06→20:55)
[2017-04-19] MEDS: hydrALAZINE 25 MG TAB PO SCH ×3 (09:07→20:54)
[2017-04-19] MEDS: HumaLOG 300 UNITS/3 ML VIAL SC PRN ×2 (12:25→17:31)
--- NOTE | 2017-04-19 13:05 | PRG ---
DATE OF SERVICE: 04/19/2017 SUBJECTIVE: The patient tells me she was supposed to go home today. She is in pretty poor state. S he has been unable to walk more than 50 feet. OBJECTIVE: VITAL SIGNS: Temperature 98.4, pulse 83, respirations 16, O2 sat 93% and blood pressure 146/81. HEENT: Unremarkable. NECK: No JVD. LUNGS: She has diffuse bilateral wheezing. CARDIAC: S1 and S2 regular. ABDOMEN: Soft. EXTREMITIES: No edema. LABORATORY DATA: No labs were obtained today. ASSESSMENT: Chronic obstructive pulmonary disease with exacerbation. RECOMMENDATIONS: In my opinion, the patient is not well enough to go home and take care of herself. I think she needs to continue on the nebulization treatment and the steroids and she needs to recons ider placement either in a long-term or perhaps rehabilitation.
--- NOTE | 2017-04-19 14:07 | PDOC.PN ---
- Subjective Encounter Start Date: 04/19/17 Encounter Start Time: 09:00 Subjective: has progressively gotten better since admission -: refuses to be placed anywhere -: is amb by herself in the room - Objective Resuscitation Status: Resuscitation Status DNR:Do Not Resuscitate MAR Reviewed: Yes Vital Signs & Weight: Vital Signs (12 hours) Temp Pulse Resp BP BP Pulse Ox 04/19/17 11:54 83 18 96 04/19/17 11:49 83 16 146/81 H 93 L 04/19/17 09:07 67 170/79 H 04/19/17 09:05 170/79 H 04/19/17 08:00 98.4 F 67 16 93 L 04/19/17 07:47 98.4 F 67 16 170/79 H 93 L 04/19/17 06:41 63 16 96 04/19/17 06:37 63 16 96 04/19/17 04:00 98.3 F 62 20 173/85 H 96 Weight Admit Weight 198 lb 6.656 oz Weight 198 lb 6.656 oz I&O: 04/18/17 04/19/17 04/20/17 06:59 06:59 06:59 Intake Total 960 Balance 960 Result Diagrams: 04/18/17 05:25 04/18/17 05:25 Additional Labs: Accuchecks 04/19/17 04/19/17 04/18/17 11:30 04:40 20:14 POC Glucose 201 H 144 H 220 H 04/18/17 16:41 POC Glucose 305 H Phys Exam - Physical Examination HEENT: PERRLA, moist MMs Neck: no JVD, supple Respiratory: no wheezing, no rales rhonchi+ Cardiovascular: RRR, no significant murmur Gastrointestinal: soft, non-tender, positive bowel sounds Musculoskeletal: no edema, pulses present Neurological: non-focal, moves all 4 limbs Psychiatric: A&O x 3 Dx/Plan (1) COPD exacerbation Code(s): J44.1 - CHRONIC OBSTRUCTIVE PULMONARY DISEASE W (ACUTE) EXACERBATION Status: Acute (2) Respiratory failure with hypoxia Code(s): J96.91 - RESPIRATORY FAILURE, UNSPECIFIED WITH HYPOXIA Status: Chronic Qualifiers: Chronicity: chronic Qualified Code(s): J96.11 - Chronic respiratory failure with hypoxia (3) Atrial fibrillation Code(s): I48.91 - UNSPECIFIED ATRIAL FIBRILLATION Status: Chronic Qualifiers: Atrial fibrillation type: chronic Qualified Code(s): I48.2 - Chronic atrial fibrillation (4) CAD (coronary artery disease) Code(s): I25.10 - ATHSCL HEART DISEASE OF [place] CORONARY ARTERY W/O ANG PCTRS Status: Chronic Qualifiers: Coronary Disease-Associated Artery/Lesion type: [place] artery [place] vs. transplanted heart: [place] heart Associated angina: without angina Qualified Code(s): I25.10 - Atherosclerotic heart disease of [place] coronary artery without angina pectoris (5) DM type 2 (diabetes mellitus, type 2) Status: Chronic Qualifiers: Diabetes mellitus complication status: with unspecified complications Diabetes mellitus shelter insulin use: without shelter use Qualified Code( s): E11.8 - Type 2 diabetes mellitus with unspecified complications (6) Diastolic heart failure Code(s): I50.30 - UNSPECIFIED DIASTOLIC (CONGESTIVE) HEART FAILURE Status: Chronic Qualifiers: Heart failure chronicity: chronic (7) HTN (hypertension) Code(s): I10 - ESSENTIAL (PRIMARY) HYPERTENSION Status: Chronic Qualifiers: Hypertension type: essential hypertension (8) Physical deconditioning Code(s): R53.81 - OTHER MALAISE Status: Acute - Plan Pt has refused to be placed anywhere from last 3 days -: initially she was on bed, then she just stood for 2 days, now has amb 50 ft -: likely above is her baseline, is on 3lts home oxygen -: is on oral prednisone, levaquin, nebs -: dc plan per pulm advice * . Review of Systems - Medications/Allergies Allergies/Adverse Reactions: Allergies Allergy/AdvReac Type Severity Reaction Status Date / Time promethazine HCl Allergy Unknown Anxiety Verified 08/27/16 21:26 [From Phenergan] Medications: Current Medications Acetaminophen (Tylenol) 650 mg PO Q4H PRN PRN Reason: Headache/Fever or Pain Last Admin: 04/18/17 08:58 Dose: 650 mg Al Hydroxide/Mg Hydroxide (Maalox) 30 ml PO Q6H PRN PRN Reason: Heartburn or Indigestion Albuterol Sulfate (Ventolin) 2.5 mg NEB Q2H PRN PRN Reason: Dyspnea/Wheezing/SOB Last Admin: 04/15/17 07:58 Dose: 2.5 mg Albuterol/Ipratropium (Duoneb) 3 ml NEB [id number] [facility] Last Admin: 04/19/17 11:54 Dose: 3 ml Apixaban (Eliquis) 5 mg PO BID [facility] Last Admin: 04/19/17 09:05 Dose: 5 mg Aspirin (Aspirin Chewable) 81 mg PO DAILY [facility] Last Admin: 04/19/17 09:07 Dose: 81 mg Carvedilol (Coreg) 6.25 mg PO BID [facility] Last Admin: 04/19/17 09:05 Dose: 6.25 mg Dextrose/Water (Dextrose 50%) 25 gm IVP PRN PRN PRN Reason: HYPOGLYCEMIA PROTOCOL Escitalopram Oxalate (Lexapro) 10 mg PO DAILY [facility] Last Admin: 04/19/17 09:05 Dose: 10 mg Famotidine (Pepcid) 20 mg PO BID [facility] Last Admin: 04/19/17 09:05 Dose: 20 mg Fish Oil (Fish Oil) 1,000 mg PO DAILY [facility] Last Admin: 04/19/17 09:05 Dose: 1,000 mg Glucagon (Glucagon) 1 mg IM PRN PRN PRN Reason: HYPOGLYCEMIA PROTOCOL Guaifenesin/Dextromethorphan (Robitussin Dm) 15 ml PO Q4H PRN PRN Reason: Cough Last Admin: 04/18/17 21:54 Dose: 15 ml Hydralazine HCl (Apresoline) 25 mg PO TID [facility] Last Admin: 04/19/17 09:07 Dose: 25 mg Levofloxacin 500 mg/ Device 100 mls @ 100 mls/hr IVPB 1100 [facility] Last Admin: 04/19/17 11:10 Dose: Not Given Dextrose/Water (D5w) 1,000 mls @ 0 mls/hr IV INF PRN; As Directed PRN Reason: HYPOGLYCEMIA PROTOCOL Insulin Human Lispro (Humalog) 0 units SC .MODERATE SLIDING SC PRN; Protocol PRN Reason: MODERATE SLIDING SCALE Last Admin: 04/19/17 12:25 Dose: 4 unit Levothyroxine Sodium (Synthroid) 50 mcg PO 0600 [facility] Last Admin: 04/19/17 07:24 Dose: 50 mcg Lisinopril (Zestril) 20 mg PO BID [facility] Last Admin: 04/19/17 09:05 Dose: 20 mg Metformin HCl (Glucophage) 500 mg PO BID[facility] Last Admin: 04/19/17 09:05 Dose: 500 mg Mometasone Furoate/Formoterol Fumar (Dulera 200 Mcg/5 Mcg Inhaler) 2 puff INH BID-RT [facility] Last Admin: 04/19/17 06:41 Dose: 2 puff Ondansetron HCl (Zofran) 4 mg SLOW IVP Q6H PRN PRN Reason: Nausea/Vomiting Last Admin: 04/15/17 17:19 Dose: 4 mg Pravastatin Sodium (Pravachol) 10 mg PO HS [facility] Last Admin: 04/18/17 21:43 Dose: 10 mg Prednisone (Prednisone) 20 mg PO QAM-[facility] Last Admin: 04/19/17 09:06 Dose: 20 mg Senna (Senokot) 2 tab PO HSPRN PRN PRN Reason: Constipation Sodium Chloride (Flush - Normal Saline) 10 ml IVF Q12HR [facility] Last Admin: 04/19/17 09:07 Dose: 10 ml Sodium Chloride (Flush - Normal Saline) 10 ml IVF PRN PRN PRN Reason: Saline Flush Sulfasalazine (Azulfidine) 500 mg PO BID [facility] Last Admin: 04/19/17 09:06 Dose: 500 mg
[2017-04-19] MEDS: Acetaminophen 325 MG TAB PO PRN (17:31)
[2017-04-19] MEDS: Pravastatin Sodium 20 MG TAB PO SCH (20:56)
[2017-04-19] MEDS ORDERED: hydrALAZINE 25 MG TAB PO PRN (21:22)
[2017-04-19] MEDS ORDERED: cloNIDine 0.1 MG TAB PO PRN (21:22)
[2017-04-20 05:33] LABS: Hemoglobin 11.6 g/dL (12.0-16.0); Platelet Count 204 thou/uL (130-400)
[2017-04-20] MEDS: Mometasone/Formoterol 120 PUFF INHALER INH SCH ×2 (06:17→22:07)
[2017-04-20] MEDS: Levothyroxine Sodium 25 MCG TAB PO SCH (06:25)
[2017-04-20] MEDS: Apixaban 5 MG TAB PO SCH ×2 (08:41→20:16)
[2017-04-20] MEDS: metFORMIN 500 MG TAB PO SCH ×2 (08:41→19:16)
[2017-04-20] MEDS: Famotidine 20 MG TAB PO SCH ×2 (08:41→20:16)
[2017-04-20] MEDS: Lisinopril 20 MG TAB PO SCH ×2 (08:41→20:16)
[2017-04-20] MEDS: Escitalopram Oxalate 10 mg Tablet PO SCH (08:41)
[2017-04-20] MEDS: Fish Oil 1,000 MG CAP PO SCH (08:41)
[2017-04-20] MEDS: predniSONE 20 MG TAB PO SCH (08:42)
[2017-04-20] MEDS: hydrALAZINE 25 MG TAB PO SCH ×3 (08:42→20:16)
[2017-04-20] MEDS: Carvedilol 6.25 MG TAB PO SCH ×2 (08:42→20:15)
[2017-04-20] MEDS: sulfaSALAzine 500 MG TAB PO SCH ×2 (08:42→20:16)
[2017-04-20 11:16] LABS: ALT (SGPT) 42 U/L (8-55); AST (SGOT) 27 U/L (5-34); Albumin 3.6 g/dL (3.4-4.8); Alkaline Phosphatase 59 U/L (40-150); Anion Gap 13 mmol/L (10-20); BUN (Urea Nitrogen) 24 mg/dL (9.8-20.1); Bilirubin, Total 0.5 mg/dL (0.2-1.2); Calc. Creatinine Clearance 59 mL/min (70-130); Calcium 9.9 mg/dL (7.8-10.44); Carbon Dioxide 34 mmol/L (23-31); Chloride 98 mmol/L (98-107); Estimated GFR-MDRD 52; Globulin 2.4 g/dL (2.4-3.5); Glucose 212 mg/dL (83-110); Potassium 4.3 mmol/L (3.5-5.1); Sodium 141 mmol/L (136-145)
--- NOTE | 2017-04-20 11:16 | PDOC.PN ---
- Subjective Encounter Start Date: 04/20/17 Encounter Start Time: 11:15 Subjective: still sob, weak - Objective Resuscitation Status: Resuscitation Status DNR:Do Not Resuscitate MAR Reviewed: Yes Vital Signs & Weight: Vital Signs (12 hours) Temp Pulse Resp BP BP Pulse Ox 04/20/17 08:42 67 178/84 H 04/20/17 08:41 178/84 H 04/20/17 07:29 97.9 F 67 16 178/84 H 98 04/20/17 06:17 69 16 96 04/20/17 06:14 69 14 96 04/20/17 00:36 67 16 95 04/20/17 00:00 67 172/73 H 95 Weight Admit Weight 198 lb 6.656 oz Weight 198 lb 6.656 oz Result Diagrams: 04/20/17 04:20 04/20/17 04:20 Additional Labs: Accuchecks 04/20/17 04/19/17 04/19/17 04:18 21:03 16:20 POC Glucose 144 H 201 H 203 H 04/19/17 11:30 POC Glucose 201 H Phys Exam - Physical Examination Constitutional: NAD Neck: no JVD coarse BS, wheezes , rhonchi Cardiovascular: RRR, no significant murmur Gastrointestinal: soft, non-tender, positive bowel sounds Musculoskeletal: edema present Dx/Plan (1) COPD exacerbation Code(s): J44.1 - CHRONIC OBSTRUCTIVE PULMONARY DISEASE W (ACUTE) EXACERBATION Status: Acute (2) Atrial fibrillation Code(s): I48.91 - UNSPECIFIED ATRIAL FIBRILLATION Status: Chronic Qualifiers: Atrial fibrillation type: chronic Qualified Code(s): I48.2 - Chronic atrial fibrillation (3) CAD (coronary artery disease) Code(s): I25.10 - ATHSCL HEART DISEASE OF [place] CORONARY ARTERY W/O ANG PCTRS Status: Chronic Qualifiers: Coronary Disease-Associated Artery/Lesion type: [place] artery [place] vs. transplanted heart: [place] heart Associated angina: without angina Qualified Code(s): I25.10 - Atherosclerotic heart disease of [place] coronary artery without angina pectoris (4) DM type 2 (diabetes mellitus, type 2) Status: Chronic Qualifiers: Diabetes mellitus complication status: with unspecified complications Diabetes mellitus residential insulin use: without residential use Qualified Code( s): E11.8 - Type 2 diabetes mellitus with unspecified complications (5) Diastolic heart failure Code(s): I50.30 - UNSPECIFIED DIASTOLIC (CONGESTIVE) HEART FAILURE Status: Chronic Qualifiers: Heart failure chronicity: chronic - Plan cont nebs, steroids, antibx -: cont accu/ss/metformin -: cont coreg/ lisiopril/ etc * .
[2017-04-20] MEDS: HumaLOG 300 UNITS/3 ML VIAL SC PRN (12:37)
--- NOTE | 2017-04-20 14:18 | PRG ---
DATE OF SERVICE: 04/20/2017 SUBJECTIVE: Ms. Jones says she feels better today, but not quite strong enough to go home. OBJECTIVE: VITAL SIGNS: Temperature is 97.9, pulse 78, blood pressure 178/84, O2 sat 96% on 3 liters. HEENT: Unremarkable. NECK: No JVD. LUNGS: Coarse breath sounds. CARDIAC: S1 and S2 regular. ABDOMEN: Soft. EXTREMITIES: No edema. LABORATORY DATA: Hemoglobin 11.6, hematocrit 37.3, platelet count 204. Sodium 141, potassium 4.3, B UN 24, creatinine 1.0, glucose 212. ASSESSMENT: Chronic obstructive pulmonary disease with exacerbation. PLAN: Likely home tomorrow. She is adamantly refusing rehabilitation, although I think she would gr eatly benefit from some type of transitional care between here and home. Apparently, she is living i ndependently over at [facility].
[2017-04-20] MEDS: Pravastatin Sodium 20 MG TAB PO SCH (20:15)
[2017-04-20] MEDS: Guaifenesin DM 100-10/5 ML UDCUP PO PRN (21:05)
[2017-04-21] MEDS: Levothyroxine Sodium 25 MCG TAB PO SCH (05:42)
[2017-04-21] MEDS: Mometasone/Formoterol 120 PUFF INHALER INH SCH (06:47)
[2017-04-21] MEDS: Apixaban 5 MG TAB PO SCH (08:07)
[2017-04-21] MEDS: Lisinopril 20 MG TAB PO SCH (08:07)
[2017-04-21] MEDS: Carvedilol 6.25 MG TAB PO SCH (08:07)
[2017-04-21] MEDS: Famotidine 20 MG TAB PO SCH (08:08)
[2017-04-21] MEDS: metFORMIN 500 MG TAB PO SCH (08:08)
[2017-04-21] MEDS: Escitalopram Oxalate 10 mg Tablet PO SCH (08:08)
[2017-04-21] MEDS: hydrALAZINE 25 MG TAB PO SCH (08:08)
[2017-04-21] MEDS: sulfaSALAzine 500 MG TAB PO SCH (08:08)
[2017-04-21] MEDS: predniSONE 20 MG TAB PO SCH (08:08)
[2017-04-21] MEDS: Fish Oil 1,000 MG CAP PO SCH (08:08)
[2017-04-21 11:11] VITALS: BP 149/77; TEMP 98.3
--- NOTE | 2017-04-21 11:24 | PRG ---
DATE OF SERVICE: 04/21/2017 SUBJECTIVE: This morning, she says she is feeling better, less short of breath. OBJECTIVE: VITAL SIGNS: Blood pressure 140/80, sats are 96%, temperature 97, respiration 16. CHEST: Decreased breath sounds, no wheezing. CARDIAC: Normal S1, S2. No gallops. ABDOMEN: No masses. IMPRESSION: 1. End-stage chronic obstructive pulmonary disease. 2. Diabetes. 3. Sleep apnea. 4. Severe deconditioning. 5. Congestive heart failure. PLAN: She can be discharged home. She had nocturnal ventilation, taper steroids over 2 weeks, antib iotics total of 5 days, neb treatments and supportive care.
--- NOTE | 2017-04-21 11:57 | DIS ---
TRANSFER OF CARE NOTE DATE OF ADMISSION: 04/14/2017 DATE OF DISCHARGE: 04/21/2017 DISCHARGE DISPOSITION: Home. FINAL DIAGNOSES: 1. Acute exacerbation of chronic obstructive pulmonary disease. 2. Hypertension. 3. Atrial fibrillation, controlled ventricular response. 4. Dyslipidemia. DISCHARGE MEDICATIONS: Fish oil 1000 mg a day, Lexapro 10 mg a day, digoxin 250 mcg a day, Coreg 6.2 5 mg twice a day, aspirin 81 mg a day, Pravachol 10 mg at bedtime, Dulera inhaler 1 puff twice a day, lisinopril 20 mg twice a day, Levothyroxine 50 mcg a day, DuoNeb 3 mL q.i.d., Breo Ellipta 1 inhaled daily, Azulfidine 500 mg twice a day, metformin 500 mg twice a day, Eliquis 5 mg twice a day, predni sone 10 mg p.o. b.i.d. for 7 days, then 10 mg p.o. daily, hydralazine 25 mg t.i.d., Levaquin 500 mg d aily x5 days. ALLERGIES: PROMETHAZINE. CODE STATUS: DNR. PENDING AT THE TIME OF DISCHARGE: Nothing. HOSPITAL COURSE: The patient with known obstructive lung disease admitted to the [facility] through [facility] with cough, fever, shortness of breath. She was admit teresa with acute exacerbation of chronic obstructive pulmonary disease. She was placed on Solu-Medrol, IV Levaquin, frequent nebulizers. She was seen in consultation by Dr. Vignesh Trujillo, her tax form preparer. He agreed with current therapy. The patient improved very slowly during her hospital stay, but her lung sapp are now clear. Vital signs are stable. Dr. Trujillo has seen her this morning and cleared her for discharge. No procedures were done. She is being discharged to follow up with Dr. Donnie cade in 7 days. Follow up with Dr. Trujillo in 2-3 weeks. Thirty-five minutes spent preparing this discharge.
== END 2017-04-21 12:45 | disposition home or self-care (01) | DRG 191 ==
LOC: ERS 10:22 → 3SE 12:01 → T4-A 04-15 11:54
PROVIDERS: ADMIT Internal Medicine; ATTEND Internal Medicine
PROC: 5A09357 Assistance with Respiratory Ventilation, Less than 24 Consecutive Hours, Continuous Positive Airway Pressure (ICD-10-PCS; principal; 2017-04-17)
DX: J44.1 Chronic obstructive pulmonary disease with (acute) exacerbation (principal); I47.1 Supraventricular tachycardia; J96.11 Chronic respiratory failure with hypoxia; E66.01 Morbid (severe) obesity due to excess calories; I48.2 Chronic atrial fibrillation; I11.0 Hypertensive heart disease with heart failure; I50.32 Chronic diastolic (congestive) heart failure; E11.9 Type 2 diabetes mellitus without complications; G47.30 Sleep apnea, unspecified; E78.5 Hyperlipidemia, unspecified; Z79.84 Long term (current) use of oral hypoglycemic drugs; Z79.01 Long term (current) use of anticoagulants; Z85.3 Personal history of malignant neoplasm of breast; Z66 Do not resuscitate; I25.10 Atherosclerotic heart disease of native coronary artery without angina pectoris; Z99.81 Dependence on supplemental oxygen; Z68.35 Body mass index [BMI] 35.0-35.9, adult; Z87.891 Personal history of nicotine dependence
CPT/HCPCS: 36415; 36416; 71045; 80048; 80053; 82550; 82553; 82565; 83605; 84484; 85014; 85018; 85025; 85049; 87040; 87070; 87149; 87205; 87633; 93005; 94640; 94660; 94760; 96365; 96366; 96375; 99214; A4216; G0463; G8978-GP-CJ; G8979-GP-CI; J0360; J1956; J2405; J2920; J7506; J7611; J7620

== ENCOUNTER 2017-06-02 15:49 | Emergency (ER) | payer MEDICARE ==
[2017-06-02 17:15] LABS: #Lymphocytes 0.7 thou/uL (1.20-3.40); #Monocytes 0.5 thou/uL (0.11-0.59); #Neutrophils 4.5 thou/uL (1.40-6.50); %Basophils 0.7 % (0.0-1.0); %Eosinophils 0.8 % (0.0-10.0); %Lymphocytes 12.4 % (21.0-51.0); %Monocytes 9.1 % (0.0-10.0); Hemoglobin 10.6 g/dL (12.0-16.0); Mean Corpuscular HGB CONC 31.8 g/dL (32.0-36.0); Mean Corpuscular Hemoglobin 29.8 pg (27.0-31.0); Mean Corpuscular Volume 93.8 fl (81.0-99.0); Mean Platelet Volume 7.5 fL (7.4-10.4); Platelet Count 198 thou/uL (130-400); RBC Distribution Width 15.6 % (11.5-14.5); Red Blood Cell (RBC) Count 3.56 mill/uL (4.20-5.40); White Blood Cell (WBC) Count 5.9 thou/uL (4.8-10.8)
[2017-06-02 17:23] LABS: INR-International Normal Ratio 1.3; PTT 35.7 SEC (22.9-36.1); Prothrombin Time 16.7 SEC (12.0-14.7)
[2017-06-02 17:39] LABS: ALT (SGPT) 21 U/L (8-55); AST (SGOT) 19 U/L (5-34); Albumin 4.1 g/dL (3.4-4.8); Alkaline Phosphatase 76 U/L (40-150); Anion Gap 15 mmol/L (10-20); BUN (Urea Nitrogen) 15 mg/dL (9.8-20.1); Bilirubin, Total 0.5 mg/dL (0.2-1.2); CK (CPK) 32 U/L (29-168); Calc. Creatinine Clearance 0 mL/min (70-130); Carbon Dioxide 29 mmol/L (23-31); Chloride 101 mmol/L (98-107); Estimated GFR-MDRD 66; Globulin 2.4 g/dL (2.4-3.5); Glucose 111 mg/dL (83-110); Protein, Total 6.5 g/dL (6.0-8.3); Sodium 141 mmol/L (136-145)
[2017-06-02 17:42] LABS: CKMB 1.2 ng/mL (0-6.6); Troponin I Less than 0.010 ng/mL (< 0.028)
--- NOTE | 2017-06-02 17:53 | CT ---
CT CERVICAL SPINE WITHOUT CONTRAST: History: Injury. Fall. Light headedness. Post-traumatic pain. Comparison: None. Technique: CT cervical spine is performed without contrast. Reformatted images are submitted for inte rpretation. FINDINGS: There is no prevertebral soft tissue swelling. No epidural hematoma. Varying degrees of central canal stenosis and foraminal narrowing on the basis of degenerative change. Soft tissue neck structures are grossly unremarkable. Atherosclerosis of both carotid arteries. Lateral masses of C1 and C2 as well as the facets articulate appropriately. There are degenerative ch anges of the facets with associated hypertrophy. Odontoid process is intact. Straightening of the normal cervical lordosis is presumed to be due to patient position, muscle spasm or cervical collar. Current study is not tailored to assess for ligamentous injury. Cervical spine vertebral body height is maintained. No fracture. There is diffuse bone demineralizati on. IMPRESSION: 1. No fracture. 2. Straightening of the normal cervical lordosis as detailed above. If there is concern for ligamento us injury, consider MRI. POS: [facility]
--- NOTE | 2017-06-02 17:55 | RAD ---
RIGHT HIP TWO VIEWS: History: Injury to right hip. FINDINGS: Femoral head contour is normally preserved. No acute fracture identified. Right hemipelvis appears in tact. IMPRESSION: No acute fracture identified. POS: [facility]
--- NOTE | 2017-06-02 17:56 | RAD ---
PORTABLE CHEST: History: Dyspnea. FINDINGS: Comparison is made with 04-14-17. Cardiomegaly. Vascular congestion. Interstitial congestion. Probable small effusions. IMPRESSION: There are congestive changes as described. POS: [facility]
--- NOTE | 2017-06-02 17:56 | RAD ---
LEFT SHOULDER THREE VIEWS: History: Injury to left shoulder, pain. FINDINGS: No evidence of fracture or dislocation. AC joint is normally aligned. No significant degenerative asya nge apparent. IMPRESSION: No acute finding. POS: [facility]
--- NOTE | 2017-06-02 17:57 | RAD ---
AP PELVIS: History: Injury to pelvis with pain. Comparison: 08-03-16 FINDINGS: Pelvis appears intact. Hips appear intact. IMPRESSION: No acute fracture identified. POS: [facility]
--- NOTE | 2017-06-02 18:14 | CT ---
CT HEAD WITHOUT CONTRAST: Technique: Multiple axial tomograms were obtained through the head without IV enhancement. History: Fall with injury to head. FINDINGS: Comparison is made to an MRI of the brain, 08-03-13. That exam revealed cortical atrophy. 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 On today's exam there is prominent frontal lobe atrophy similar to the prior exam. There is increased density in the sella turcica, slightly more prominent to the right of midline, similar to the prior study and consistent with a pituitary macroadenoma which was described previously. Probably no interv al change comparing to the prior MRI. No acute hemorrhage. No acute infarct. Sinuses and mastoids are aerated. IMPRESSION: 1. Frontal lobe atrophy. 2. Pituitary macroadenoma. 3. No acute abnormality when compared to the prior MRI. POS: [facility]
--- NOTE | 2017-06-07 12:37 | EKG ---
Test Reason : Blood Pressure : / mmHG Vent. Rate : 052 BPM Atrial Rate : 250 BPM P-R Int : 000 ms QRS Dur : 080 ms QT Int : 304 ms P-R-T Axes : 000 083 109 degrees QTc Int : 282 ms Atrial fibrillation with slow ventricular response Nonspecific T wave abnormality Abnormal ECG Confirmed by CATINA JACOB, SHARI ([id number]), medical transcription editor NAYAN STILES ([id number]) on 06/07/2017 12:36:15 PM Referred By: Confirmed By:SHARI DOMINIQUE MD
== END 2017-06-02 17:58 | disposition home or self-care (01) ==
LOC: ERS 15:49
DX: S09.90XA Unspecified injury of head, initial encounter (principal); S40.012A Contusion of left shoulder, initial encounter; S13.4XXA Sprain of ligaments of cervical spine, initial encounter; J44.9 Chronic obstructive pulmonary disease, unspecified; E11.9 Type 2 diabetes mellitus without complications; I48.91 Unspecified atrial fibrillation; I11.0 Hypertensive heart disease with heart failure; I50.9 Heart failure, unspecified; F41.9 Anxiety disorder, unspecified; Z87.891 Personal history of nicotine dependence; Z79.82 Long term (current) use of aspirin; Z79.899 Other long term (current) drug therapy; Z79.891 Long term (current) use of opiate analgesic; W01.198A Fall on same level from slipping, tripping and stumbling with subsequent striking against other object, initial encounter; Y92.59 Other trade areas as the place of occurrence of the external cause
CPT/HCPCS: 70450; 71045; 72125; 72170; 80053; 82550; 82553; 83880; 84484; 85025; 85610; 85730; 93005; 94760

== ENCOUNTER 2017-10-07 14:09 | Emergency (ER) | payer MEDICARE ==
--- NOTE | 2017-10-07 15:30 | RAD ---
TWO VIEWS OF THE LEFT TIBIA AND FIBULA: History: Fall last night with left leg weakness and pain. FINDINGS: Two views of the left tibia/fibula shows a mildly angulated fracture of the proximal third of the fib ular diaphysis. Surrounding soft tissue swelling is seen. No tibial fracture is seen. IMPRESSION: Proximal left fibular fracture. POS: [facility]
--- NOTE | 2017-10-07 15:31 | RAD ---
TWO VIEWS RIGHT TIBIA/FIBULA: History: Mechanical fall last night with leg pain. FINDINGS: Two views of the right tibia/fibula shows no evidence of acute fracture or dislocation. Mild diffuse soft tissue swelling is seen. Vascular calcifications are present. IMPRESSION: No evidence of acute osseous abnormality. POS: [facility]
--- NOTE | 2017-10-07 15:32 | RAD ---
TWO VIEWS LEFT HIP: Comparison: None. History: Fall last night with left leg pain. FINDINGS: Two views of the left hip shows no evidence of acute fracture or dislocation. No degenerative changes are seen. No soft tissue swelling is present. IMPRESSION: No evidence of acute osseous abnormality of the left hip. POS: [facility]
--- NOTE | 2017-10-07 15:33 | RAD ---
RIGHT HIP TWO VIEWS: History: Fall, right hip injury. Comparison: 06-02-17 FINDINGS: Mild joint space narrowing, osteophytosis, and subchondral sclerosis. Femoral head contours maintaine d. No acute fracture, dislocation, or aggressive osseous erosions. IMPRESSION: Mild osteoarthritic changes right hip. POS: [facility]
--- NOTE | 2017-10-07 15:34 | RAD ---
RIGHT WRIST THREE VIEWS: Clinical history: Fall with pain. FINDINGS: There is osseous demineralization. The carpal alignment is maintained. There is moderate osteoarthrit is which is greatest at the first CMP joint. No fracture or dislocation identified. IMPRESSION: Osteoarthritis of the right wrist. There is no acute fracture. POS: [facility]
--- NOTE | 2017-10-07 15:40 | RAD ---
SINGLE VIEW OF THE PELVIS: 10/07/17 COMPARISON: 06/02/17. HISTORY: Mechanical fall last night with left leg pain. FINDINGS: Single view of the pelvis shows no evidence of acute fracture or dislocation. Mild degenerative mahoney e is seen in the right hip. Degenerative changes are seen in the lumbar spine. IMPRESSION: No evidence of acute osseous abnormality. POS: [facility]
--- NOTE | 2017-10-07 15:41 | RAD ---
LEFT FOOT THREE VIEWS: 10/07/17 HISTORY: Fall. Left foot injury. FINDINGS: Lisfranc joint alignment is anatomic. Pes planus on the lateral review. Nondisplaced oblique fracture at the fifth metatarsal base is present with 0.1 cm distraction of fragment. IMPRESSION: Minimally distracted Painter' fracture left fifth metatarsal base. POS: [facility]
[2017-10-07 16:09] LABS: #Eosinphils 0.1 thou/uL (0.0-0.7); #Lymphocytes 0.8 thou/uL (1.20-3.40); #Monocytes 0.8 thou/uL (0.11-0.59); #Neutrophils 5.9 thou/uL (1.40-6.50); %Basophils 0.4 % (0.0-1.0); %Lymphocytes 10.7 % (21.0-51.0); %Monocytes 10.2 % (0.0-10.0); %Neutrophils 77.7 % (42.0-75.0); Hemoglobin 11.3 g/dL (12.0-16.0); Mean Corpuscular HGB CONC 32.8 g/dL (32.0-36.0); Mean Corpuscular Hemoglobin 30.2 pg (27.0-31.0); Mean Corpuscular Volume 92.3 fL (78.0-98.0); Mean Platelet Volume 7.7 fL (7.4-10.4); Platelet Count 163 thou/uL (130-400); RBC Distribution Width 14.9 % (11.5-14.5); Red Blood Cell (RBC) Count 3.73 mill/uL (4.20-5.40); White Blood Cell (WBC) Count 7.6 thou/uL (4.8-10.8)
[2017-10-07 16:16] LABS: INR-International Normal Ratio 1.2; PTT 29.9 SEC (22.9-36.1); Prothrombin Time 15.4 SEC (12.0-14.7)
[2017-10-07 16:32] LABS: ALT (SGPT) 19 U/L (8-55); AST (SGOT) 25 U/L (5-34); Albumin 4.1 g/dL (3.4-4.8); Alkaline Phosphatase 64 U/L (40-150); Anion Gap 13 mmol/L (10-20); BUN (Urea Nitrogen) 16 mg/dL (9.8-20.1); Bilirubin, Total 0.5 mg/dL (0.2-1.2); CK (CPK) 163 U/L (29-168); Calc. Creatinine Clearance 0 mL/min (70-130); Calcium 9.6 mg/dL (7.8-10.44); Carbon Dioxide 27 mmol/L (23-31); Chloride 102 mmol/L (98-107); Estimated GFR-MDRD 51; Globulin 2.1 g/dL (2.4-3.5); Glucose 108 mg/dL (83-110); Potassium 4.4 mmol/L (3.5-5.1); Protein, Total 6.2 g/dL (6.0-8.3); Sodium 138 mmol/L (136-145)
[2017-10-07] MEDS ORDERED: Lisinopril 10 MG TAB ONE ×2 (16:34→21:02)
[2017-10-07] MEDS ORDERED: hydrALAZINE 20 MG/ML VIAL ONE (21:35)
== END 2017-10-07 21:08 | disposition home or self-care (01) ==
LOC: ERS 14:09
DX: S92.352A Displaced fracture of fifth metatarsal bone, left foot, initial encounter for closed fracture (principal); S82.832A Other fracture of upper and lower end of left fibula, initial encounter for closed fracture; E11.9 Type 2 diabetes mellitus without complications; I50.9 Heart failure, unspecified; I48.91 Unspecified atrial fibrillation; I10 Essential (primary) hypertension; J44.9 Chronic obstructive pulmonary disease, unspecified; Z87.891 Personal history of nicotine dependence; Z79.899 Other long term (current) drug therapy; Z79.82 Long term (current) use of aspirin; W18.30XA Fall on same level, unspecified, initial encounter
CPT/HCPCS: 36415; 72170; 80053; 82550; 85025; 85610; 85730; 93005; 96374; J0360